=== PATIENT | female | born 1970 | race American Indian/Alaskan Native ===

== ENCOUNTER 2020-08-14 11:21 | Outpatient (CLI) | payer OTHER ==
[2020-08-14 11:49] LABS: Basophils # (Auto) 0.1 K/mm3 (0.0-0.1); Basophils % (Auto) 1.1 % (0.0-1.8); Eosinophils # (Auto) 0.2 K/mm3 (0.0-0.4); Eosinophils % (Auto) 3.3 % (0.0-4.3); Hematocrit 31.1 % (30.3-42.9); Hemoglobin 9.5 gm/dl (10.1-14.3); Lymphocytes # (Auto) 1.7 K/mm3 (1.2-5.4); Lymphocytes % (Auto) 27.3 % (13.4-35.0); Mean Corpuscular HGB Conc 30 % (30-34); Mean Corpuscular Volume 73 fl (79-97); Monocytes # (Auto) 0.5 K/mm3 (0.0-0.8); Monocytes % (Auto) 7.6 % (0.0-7.3); Platelet Count 377 K/mm3 (140-440); Red Blood Count 4.26 M/mm3 (3.65-5.03); Red Cell Distribution Width 18.8 % (13.2-15.2)
[2020-08-14 11:53] LABS: Bilirubin,Urine NEG (Negative); Blood,Urine NEG (Negative); Color,Urine Yellow (Yellow); Protein,Urine <15 mg/dL mg/dL (Negative); Urobilinogen,Urine < 2.0 mg/dL (<2.0); WBC,Urine < 1.0 /HPF (0.0-6.0)
[2020-08-14 12:08] LABS: Alanine Aminotransferase 15 units/L (7-56); Albumin 3.9 g/dL (3.9-5); Blood Urea Nitrogen 11 mg/dL (7-17); HDL Cholesterol 67 mg/dL (40-59); Hemolysis Index 2; LDL Cholesterol,Direct 133 mg/dL (50-130)
[2020-08-14 12:11] LABS: BUN/Creatinine Ratio 18
== END 2020-08-14 11:22 | disposition home or self-care (01) ==
LOC: LAB 11:21
PROVIDERS: ATTEND Internal Medicine
DX: Z00.00 Encounter for general adult medical examination without abnormal findings (principal); Z13.29 Encounter for screening for other suspected endocrine disorder; R73.03 Prediabetes; E55.9 Vitamin D deficiency, unspecified; E78.5 Hyperlipidemia, unspecified; R20.2 Paresthesia of skin; N39.0 Urinary tract infection, site not specified
CPT/HCPCS: 36415; 80053; 80061; 81001; 82306; 82607; 83036; 84443; 85025

== ENCOUNTER 2021-06-13 15:28 | Emergency (ER) | payer OTHER ==
[2021-06-13] MEDS ORDERED: ASPIRIN 325 MG TAB PO ONE (16:00)
--- NOTE | 2021-06-13 16:14 | Emergency Department Report ---
ED Chest Pain HPI - General Chief Complaint: Chest Pain Stated Complaint: CHEST PAIN, LT HAND NUMB Time Seen by Provider: 06/13/21 15:48 Source: patient Mode of arrival: Ambulatory Limitations: No Limitations - History of Present Illness Initial Comments: Patient is a 50-year-old female presents emergency room complaints of midsternal chest pain that began a couple of days ago. She states it feels like a tightness and a pressure. Patient states that she is also been experiencing some left arm tingling. She denies any fever, nausea, vomiting, diarrhea, hemoptysis, diaphoresis, shortness of breath, cough, leg swelling. Past medical history of anxiety, depression, TIA, fibromyaglia. Allergy to iodine and sulfa. She is a never smoker. She states that she does have a family history of cardiac issues and states that she believes her mother was diagnosed in her early 60s. Patient states that she had a stress test in 2016 and reports it was normal at that time. - Related Data Previous Rx's Medication Instructions Recorded Last Taken Type hydrOXYzine HCL [Atarax] 25 mg PO Q6HR PRN #12 tablet 06/13/21 Unknown Rx Allergies Allergy/AdvReac Type Severity Reaction Status Date / Time iodine Allergy Unknown Verified 06/13/21 15:34 sulfa Allergy Unknown Uncoded 06/13/21 15:34 Heart Score - HEART Score History: Moderately suspicious EKG: Normal Age: 45-65 Risk factors: 1-2 risk factors Troponin: < normal limit HEART Score: 3 - EKG Read Time Time EKG Completed: 15:35 EKG Read Time: 15:39 ED Review of Systems ROS: Stated complaint: CHEST PAIN, LT HAND NUMB Other details as noted in HPI Comment: All other systems reviewed and negative ED Past Medical Hx - Medications Home Medications: Home Medications Medication Instructions Recorded Confirmed Last Taken Type hydrOXYzine HCL [Atarax] 25 mg PO Q6HR PRN #12 tablet 06/13/21 Unknown Rx ED Physical Exam - General Limitations: No Limitations General appearance: alert, in no apparent distress - Head Head exam: Present: atraumatic, normocephalic - Eye Eye exam: Present: other (small left sided subconjunctival hemorrhage) - ENT ENT exam: Present: mucous membranes moist - Respiratory Respiratory exam: Present: normal lung sounds bilaterally. Absent: respiratory distress, wheezes, rales, rhonchi, stridor, chest wall tenderness, accessory muscle use, decreased breath sounds, prolonged expiratory - Cardiovascular Cardiovascular Exam: Present: regular rate, normal rhythm, normal heart sounds. Absent: systolic murmur, diastolic murmur, rubs, gallop - Neurological Exam Neurological exam: Present: alert, oriented X3 - Psychiatric Psychiatric exam: Present: normal affect, normal mood - Skin Skin exam: Present: warm, dry, intact ED Course Vital Signs 06/13/21 15:44 Temperature 97.9 F Pulse Rate 87 Respiratory 18 Rate Blood Pressure 130/72 O2 Sat by Pulse 100 Oximetry ED Medical Decision Making - Lab Data Result diagrams: 06/13/21 16:39 06/13/21 16:39 Lab Results 06/13/21 06/13/21 06/13/21 Range/Units 16:39 16:39 19:20 WBC 5.7 (4.5-11.0) K/mm3 RBC 4.33 (3.65-5.03) M/mm3 Hgb 10.8 (10.1-14.3) gm/dl Hct 34.5 (30.3-42.9) % MCV 80 (79-97) fl MCH 25 L (28-32) pg MCHC 31 (30-34) % RDW 16.2 H (13.2-15.2) % Plt Count 282 (140-440) K/mm3 Lymph % (Auto) 26.6 (13.4-35.0) % Nicholas % (Auto) 8.0 H (0.0-7.3) % Eos % (Auto) 3.8 (0.0-4.3) % Baso % (Auto) 1.1 (0.0-1.8) % Lymph # (Auto) 1.5 (1.2-5.4) K/mm3 Nicholas # (Auto) 0.5 (0.0-0.8) K/mm3 Eos # (Auto) 0.2 (0.0-0.4) K/mm3 Baso # (Auto) 0.1 (0.0-0.1) K/mm3 Seg Neutrophils % 60.5 (40.0-70.0) % Seg Neutrophils # 3.5 (1.8-7.7) K/mm3 Sodium 135 L (137-145) mmol/L Potassium 4.1 (3.6-5.0) mmol/L Chloride 103.4 (98-107) mmol/L Carbon Dioxide 24 (22-30) mmol/L Anion Gap 12 mmol/L BUN 11 (7-17) mg/dL Creatinine 0.8 (0.6-1.2) mg/dL Estimated GFR > 60 ml/min BUN/Creatinine Ratio 14 % Glucose 119 H (65-100) mg/dL Calcium 9.1 (8.4-10.2) mg/dL Total Bilirubin < 0.20 (0.1-1.2) mg/dL AST 15 (5-40) units/L ALT 12 (7-56) units/L Alkaline Phosphatase 70 (35-129) units/L Troponin T < 0.010 < 0.010 (0.00-0.029) ng/mL Total Protein 6.9 (6.3-8.2) g/dL Albumin 3.9 (3.9-5) g/dL Albumin/Globulin Ratio 1.3 % - EKG Data EKG shows normal: sinus rhythm, axis, intervals, QRS complexes, ST-T waves Rate: normal - EKG Data 06/13/21 21:00 repeat EKG @ 1811 interpretated at 1822 heart rate is 73 bpm rate: NSR normal axis, normal interval, no ST-T changes - Radiology Data Radiology results: report reviewed Ordering Physician: VIKTOR FRANCIS MD Date of Service: 06/13/21 Procedure(s): XR chest routine 2V Accession Number(s): [id number] cc: VIKTOR FRANCIS MD Fluoro Time In Minutes: CHEST PA AND LATERAL VIEWS INDICATION: chest pain. COMPARISON: None. FINDINGS: Support devices: None. Heart: Within normal limits. Lungs/Pleura: No acute pulmonary or pleural findings. IMPRESSION: 1. No acute findings. Signer Name: Miguel Angel Leblanc MD Signed: 06/13/2021 4:25 PM Workstation Name: [id number] Transcribed By: ALVERTO Dictated By: Miguel Angel Leblanc MD Electronically Authenticated By: Miguel Angel Leblanc MD Signed Date/Time: 06/13/211624 DD/ 24 TD/TT: - Medical Decision Making Patient is a 50-year-old female presents emergency room complaints of midsternal chest pain that began a couple of days ago. She states it feels like a tightness and a pressure. Patient states that she is also been experiencing some left arm tingling. She denies any fever, nausea, vomiting, diarrhea, hemoptysis, diaphoresis, shortness of breath, cough, leg swelling. Past medical history of anxiety, depression, TIA, fibromyaglia. Allergy to iodine and sulfa. She is a never smoker. She states that she does have a family history of cardiac issues and states that she believes her mother was diagnosed in her early 60s. Patient states that she had a stress test in 2016 and reports it was normal at that time. vitals are normal. Labs are normal. Troponin is negative x2. EKG is normal x2. CXR: 1. No acute findings. heart score is 3, low risk cardiac event. low risk based on wells criteria for PE, PE unlikely. pt given medications in the ED with improvement of symptoms. discussed all findings with pt. advised pt please take medication as prescribed. follow up with a primary care doctor. 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 return to the emergency room for any new or worsening symptoms. Critical care attestation.: If time is entered above; I have spent that time in minutes in the direct care of this critically ill patient, excluding procedure time. ED Disposition Clinical Impression: Chest pain Qualifiers: Chest pain type: unspecified Qualified Code(s): R07.9 - Chest pain, unspecified Disposition: 01 HOME / SELF CARE / HOMELESS Is pt being admited?: No Does the pt Need Aspirin: No Condition: Stable Instructions: Nonspecific Chest Pain, Adult Additional Instructions: please take medication as prescribed. follow up with a primary care doctor. 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 return to the emergency room for any new or worsening symptoms. Prescriptions: hydrOXYzine HCL [Atarax] 25 mg PO Q6HR PRN #12 tablet PRN Reason: anxiety Referrals: LOTUS DYER MD [Primary Care Provider] - 3-5 Days CHINA FRAZIER MD [Staff Physician] - 3-5 Days Time of Disposition: 20:32 Print Language: BELIZEAN
--- NOTE | 2021-06-13 16:29 | XRay Report ---
CHEST PA AND LATERAL VIEWS INDICATION: chest pain. COMPARISON: None. FINDINGS: Support devices: None. Heart: Within normal limits. Lungs/Pleura: No acute pulmonary or pleural findings. IMPRESSION: 1. No acute findings. Signer Name: Miguel Angel Leblanc MD Signed: 06/13/2021 4:25 PM Workstation Name: [id number]
[2021-06-13 17:13] LABS: Basophils # (Auto) 0.1 K/mm3 (0.0-0.1); Basophils % (Auto) 1.1 % (0.0-1.8); Eosinophils # (Auto) 0.2 K/mm3 (0.0-0.4); Eosinophils % (Auto) 3.8 % (0.0-4.3); Hematocrit 34.5 % (30.3-42.9); Hemoglobin 10.8 gm/dl (10.1-14.3); Lymphocytes # (Auto) 1.5 K/mm3 (1.2-5.4); Lymphocytes % (Auto) 26.6 % (13.4-35.0); Mean Corpuscular HGB Conc 31 % (30-34); Mean Corpuscular Volume 80 fl (79-97); Monocytes # (Auto) 0.5 K/mm3 (0.0-0.8); Platelet Count 282 K/mm3 (140-440); Red Blood Count 4.33 M/mm3 (3.65-5.03); Red Cell Distribution Width 16.2 % (13.2-15.2)
[2021-06-13 17:35] LABS: Alanine Aminotransferase 12 units/L (7-56); Albumin 3.9 g/dL (3.9-5); BUN/Creatinine Ratio 14; Blood Urea Nitrogen 11 mg/dL (7-17); Calcium 9.1 mg/dL (8.4-10.2); Hemolysis Index 7
[2021-06-13] MEDS ORDERED: FAMOTIDINE 20 MG TAB PO ONE (18:23)
[2021-06-13] MEDS ORDERED: hydrOXYzine HCL 25 MG TAB PO ONE (18:23)
[2021-06-13] MEDS ORDERED: ALUM-MAG HYDROXIDE-SIMETHICONE 200-200-20MG/5ML ORAL LIQD 30 ML PO ONE (18:23)
[2021-06-13 21:30] VITALS: BP 130/73
--- NOTE | 2021-06-14 09:09 | Electrocardiograph Report ---
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
--- NOTE | 2021-06-14 09:09 | Electrocardiograph Report ---
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
== END 2021-06-13 21:20 | disposition home or self-care (01) ==
LOC: ED 15:28
DX: R07.9 Chest pain, unspecified (principal); Z88.2 Allergy status to sulfonamides; Z88.8 Allergy status to other drugs, medicaments and biological substances
CPT/HCPCS: 36415; 71046; 80053; 84484; 85025; 93005; 93010; 99284; Q0177

== ENCOUNTER 2021-09-15 12:22 | Outpatient (CLI) | payer OTHER ==
[2021-09-15 13:10] LABS: Bilirubin,Urine NEG (Negative); Blood,Urine NEG (Negative); Color,Urine Yellow (Yellow); Mucus,Urine FEW /HPF; Protein,Urine <15 mg/dL mg/dL (Negative); Urobilinogen,Urine < 2.0 mg/dL (<2.0); WBC,Urine < 1.0 /HPF (0.0-6.0)
[2021-09-15 13:27] LABS: Alanine Aminotransferase 14 units/L (7-56); Albumin 4.1 g/dL (3.9-5); Blood Urea Nitrogen 9 mg/dL (7-17); Chol/HDL Ratio 3.35 %; HDL Cholesterol 67 mg/dL (40-59); Hemolysis Index 5; LDL Cholesterol,Direct 143 mg/dL (50-130)
[2021-09-15 13:28] LABS: BUN/Creatinine Ratio 15
[2021-09-15 14:05] LABS: Basophils # (Auto) 0.1 K/mm3 (0.0-0.1); Eosinophils # (Auto) 0.3 K/mm3 (0.0-0.4); Eosinophils % (Auto) 4.7 % (0.0-4.3); Hematocrit 32.7 % (30.3-42.9); Hemoglobin 10.4 gm/dl (10.1-14.3); Lymphocytes # (Auto) 1.6 K/mm3 (1.2-5.4); Lymphocytes % (Auto) 28.8 % (13.4-35.0); Mean Corpuscular HGB Conc 32 % (30-34); Mean Corpuscular Volume 79 fl (79-97); Monocytes # (Auto) 0.5 K/mm3 (0.0-0.8); Monocytes % (Auto) 8.7 % (0.0-7.3); Platelet Count 298 K/mm3 (140-440); Red Blood Count 4.13 M/mm3 (3.65-5.03); Red Cell Distribution Width 18.3 % (13.2-15.2)
--- NOTE | 2021-09-15 16:23 | XRay Report ---
BILATERAL HIPS 2 VIEWS WITH AP PELVIS INDICATION / CLINICAL INFORMATION: M25.559 PAIN IN UNSPECIFIED HIP. COMPARISON: None available. FINDINGS: BONES / JOINT(S): No acute fracture or subluxation. No other significant abnormality. SOFT TISSUES: No significant abnormality. ADDITIONAL FINDINGS: None. IMPRESSION: 1. No acute findings. Signer Name: Hernandez Pimentel MD Signed: 09/15/2021 4:19 PM Workstation Name: [id number]
== END 2021-09-15 12:23 | disposition home or self-care (01) ==
LOC: XRAY 12:22
PROVIDERS: ATTEND Internal Medicine
DX: Z00.00 Encounter for general adult medical examination without abnormal findings (principal); M25.559 Pain in unspecified hip; E78.5 Hyperlipidemia, unspecified; R73.03 Prediabetes; D64.9 Anemia, unspecified; R53.83 Other fatigue; N39.0 Urinary tract infection, site not specified; E55.9 Vitamin D deficiency, unspecified
CPT/HCPCS: 36415; 73521; 80053; 80061; 81001; 83036; 84443; 85025